=== PATIENT | female | born 1970 ===

== ENCOUNTER 2021-02-19 11:30 | Outpatient (CLI) | payer OTHER | END 2021-02-19 11:31 | disposition home or self-care (01) | LOC: LAB 11:30 | CPT/HCPCS: 36415; 80053; 80061; 82306; 82670; 83001; 83036; 84144; 84443; 84550; 85025; 85652; 86038; 86140; 86431 ==

== ENCOUNTER 2021-09-24 11:08 | Outpatient (CLI) | payer OTHER | END 2021-09-24 11:09 | disposition home or self-care (01) | LOC: LAB 11:08 | PROVIDERS: ATTEND Internal Medicine | DX: L68.0 Hirsutism (principal) | CPT/HCPCS: 36415; 84403 ==

== ENCOUNTER 2022-03-06 09:39 | Outpatient (CLI) | payer OTHER ==
[2022-03-06 13:13] LABS: Basophils % (Auto) 0.7 % (0.0-1.8); Eosinophils # (Auto) 0.1 K/mm3 (0.0-0.4); Eosinophils % (Auto) 1.3 % (0.0-4.3); Hematocrit 38.9 % (30.3-42.9); Hemoglobin 13.2 gm/dl (10.1-14.3); Lymphocytes # (Auto) 1.7 K/mm3 (1.2-5.4); Lymphocytes % (Auto) 24.8 % (13.4-35.0); Mean Corpuscular HGB Conc 34 % (30-34); Mean Corpuscular Volume 86 fl (79-97); Monocytes # (Auto) 0.5 K/mm3 (0.0-0.8); Monocytes % (Auto) 6.9 % (0.0-7.3); Platelet Count 212 K/mm3 (140-440); Red Blood Count 4.51 M/mm3 (3.65-5.03); Red Cell Distribution Width 13.5 % (13.2-15.2)
[2022-03-06 14:09] LABS: Alanine Aminotransferase 13 units/L (7-56); Albumin 4.3 g/dL (3.9-5); Blood Urea Nitrogen 13 mg/dL (7-17); Calcium 8.6 mg/dL (8.4-10.2); Chol/HDL Ratio 4.73 %; HDL Cholesterol 45 mg/dL (40-59); Hemolysis Index 8; LDL Cholesterol,Direct 154 mg/dL (50-130)
[2022-03-06 14:12] LABS: BUN/Creatinine Ratio 22
== END 2022-03-06 09:40 | disposition home or self-care (01) ==
LOC: LABHHL 09:39
PROVIDERS: ATTEND Internal Medicine
DX: E78.5 Hyperlipidemia, unspecified (principal); E55.9 Vitamin D deficiency, unspecified; R53.83 Other fatigue
CPT/HCPCS: 36415; 80053; 80061; 82306; 84443; 85025; 86592; 86689; 87591